=== PATIENT | female | born 1995 | race African-American/Black ===

== ENCOUNTER 2017-10-21 10:29 | Emergency (ER) | payer MEDICAID ==
[~2017-10-21] VITALS: Ht 165.1 cm; Wt 56.0 kg
[2017-10-21] MEDS ORDERED: SODIUM CHLORIDE 0.9% 1,000 ML IV ONE (11:46)
[2017-10-21] MEDS ORDERED: DIPHENHYDRAMINE 50MG/ML VIAL IV ONE (12:00)
[2017-10-21] MEDS ORDERED: METOCLOPRAMIDE HCL 10MG/2ML VIAL IV ONE (12:00)
[2017-10-21] MEDS ORDERED: KETOROLAC 15MG/ML VIAL IV ONE (12:00)
[2017-10-21 14:12] VITALS: BP 116/73
== END 2017-10-21 14:51 | disposition home or self-care (01) ==
LOC: ER 12:19
DX: G43.909 Migraine, unspecified, not intractable, without status migrainosus (principal)
CPT/HCPCS: 81025; 96361; 96374; 96375; 99284; J1200; J1885; J2765; J7030; Z7610